=== PATIENT | male | born 1990 | race Caucasian/White ===

== ENCOUNTER 2017-12-12 00:31 | Day surgery (SDC) | payer BC ==
[~2017-12-12] VITALS: Ht 182.9 cm; Wt 77.6 kg
[2017-12-12] VITALS (8 sets, daily range): BP systolic 96–132; BP diastolic 51–75
[~2017-12-12 00:31] MED LIST: AZI250 PO; BACDS PO; LACT1CAP6 PO; LOR5 PO; PENI-22 PO; RANI-324 PO; SUCR1TAB85 PO
--- NOTE | 2017-12-12 07:33 | Post Operative Progress Note ---
Post Operative Progress Note Date: Dec 12, 2017 Time: 12:03 Surgeon: sylwia Anesthesia: dr gilbert Pre-Op Diagnosis: epigastric pain Post-Op Diagnosis: normal appearing exam Procedure(s): egd with biopsy of duodenum and for h pylori CHELA MARK MD Dec 12, 2017 07:33
--- NOTE | 2017-12-12 07:35 | Short(Outpt) Discharge Summary ---
Discharge Summary Reason for Hosp/Final Diag: (1) Epigastric pain Hospital Course & Plan: normal egd, biopsy for h pylori and bx of duodenum Departure Discharge to: Home Discharge Instructions Home Meds Reported Medications Lactobacillus Combination No.4 (PROBIOTIC) 1 Each Capsule, 1 EACH PO QDAY, CAPSULE 12/11/17 Sucralfate (CARAFATE) 1 Gm Tablet, 1 GM PO TID 12/11/17 Discontinued Reported Medications Ranitidine Hcl (ZANTAC) 150 Mg Tablet, 150 MG PO BID, TAB 12/11/17 Diet: Regular Activity: As Tolerated CHELA MRAK MD Dec 12, 2017 07:34
[2017-12-12] MEDS ORDERED: PROPOFOL EMUL(*) 10MG/ML 20 ML 0 ML ONE (07:41)
[2017-12-12] MEDS ORDERED: PROPOFOL EMUL(*) 10MG/ML 20 ML 40 ML ONE (07:41)
[2017-12-12] MEDS ORDERED: LIDOCAINE/SOD BICARB 8.4% SYR ID ONE (09:20)
[2017-12-12] MEDS ORDERED: NORMOSOL R SOLN(*) 1000 ML BAG 1,000 ML IV PRN (09:20)
[2017-12-12] MEDS ORDERED: MIDAZOLAM 2 MG/2 ML VIAL IVP ONE (09:20)
--- NOTE | 2017-12-12 22:53 | OPERATIVE REPORT 1 ---
EVENT DATE: December 12, 2017 SURGEON: Pepe Tian MD ANESTHESIOLOGIST: Surinder Segura MD ANESTHESIA: Sedation. PREOPERATIVE DIAGNOSIS Epigastric pain. POSTOPERATIVE DIAGNOSIS Normal-appearing esophagogastroduodenoscopy. PROCEDURE PERFORMED Esophagogastroduodenoscopy with biopsy for Helicobacter pylori and biopsy of the duodenum. DESCRIPTION OF PROCEDURE The patient was placed in the left lateral decubitus position and given intravenous sedation. The flexible gastroscope was inserted and advanced without difficulty. The esophagus distended nicely. The GE junction was right at 40 cm and distinct. No ulceration, narrowing, or inflammation. The stomach was empty. It passed through the pylorus and second and third portions of the duodenum, which were normal. We did biopsy the second portion of the duodenum and the duodenal bulb for histology. The pylorus was normal. The antrum was normal. The body of the stomach was normal. The scope was retroflexed. There were no fundic lesions. We biopsied for H. pylori, and the procedure was terminated. The patient tolerated the procedure well with no apparent complications. [facility]
== END 2017-12-12 12:30 | disposition home or self-care (01) ==
LOC: OR 00:31
PROVIDERS: ATTEND Surgery
DX: R10.13 Epigastric pain (principal)
CPT/HCPCS: 43239; 87077; J2704; 88305

== ENCOUNTER 2019-05-12 02:20 | Emergency (ER) | payer BC ==
[~2019-05-12 02:20] MED LIST changes: -RANI-324 PO; +RANI-54 PO
[2019-05-12 02:24] VITALS: BP 141/78
--- NOTE | 2019-05-12 02:32 | ER Report ---
History and Physical Time Seen By MD: 02:26 Hx. of Stated Complaint: patient states he was moving a metal shelves around 2200. patient has a lot of pain in left great toe, bruising under nail, and bleeding from cuticle area. HPI/ROS CHIEF COMPLAINT: Toe injury HISTORY OF PRESENT ILLNESS: This is a 28-year-old male. He is moving some metal shelving around 10:00 this evening. Crush the left great toe. Has some bruising underneath the toenail. Very tender and throbbing pain. Otherwise normal sensation. Hurts to move and hurts with any pressure. Allergies: Coded Allergies: No Known Drug Allergies (Verified , 05/12/19) Home Meds Active Scripts Hydrocodone Bit/Acetaminophen (HYDROCODON-ACETAMINOPHEN 5-325) 1 Each Tablet, 1 EACH PO Q4H PRN for PAIN, #6 TAB 0 Refills Prov:BIBI WEAVER MD 05/12/19 Discontinued Reported Medications Lactobacillus Combination No.4 (PROBIOTIC) 1 Each Capsule, 1 EACH PO QDAY, CAPSULE 12/11/17 Sucralfate (CARAFATE) 1 Gm Tablet, 1 GM PO TID 12/11/17 Reviewed Nurses Notes: Yes Hx Smoking: Yes Smoking Status: Former Smoker Hx Substance Use Disorder: No Hx Alcohol Use: No Constitutional Vital Sign - Last 24 Hours 05/12/19 02:24 Temp 98.9 Pulse 68 Resp 16 B/P (MAP) 141/78 Pulse Ox 96 O2 Delivery Room Air Physical Exam Gen.: Alert, in having some distress because of pain. Skin: A little bit of abrasion at the cuticle. Subungual hematoma left great toe. Musculoskeletal: Pain in the distal phalanx of the left great toe. Cardiovascular: Normal cap refill. Neuro: Sensory intact Medical Decision Making EKG/Imaging Imaging TOE LEFT FOOT GREAT TOE HISTORY: Smashed toe with metal shelving. Distal pain. Bruised toenail COMPARISON: None. TECHNIQUE: AP, oblique, and lateral views of the left great toe. FINDINGS: There is no fracture or dislocation. IMPRESSION: 1. No acute osseous abnormality of the left great toe. Report Dictated By: Brisa Urena at 05/12/2019 2:58 AM ED Course/Re-evaluation ED Course Using a Bovie cautery pen, burn to hold through the toenail to release pressure. Patient tolerated this well but with some pain. Lortab and ibuprofen used for pain. Decision to Disposition Date: May 12, 2019 Decision to Disposition Time: 03:28 Depart Departure Latest Vital Signs Vital Signs Date Time Temp Pulse Resp B/P (MAP) Pulse Ox O2 Delivery O2 Flow Rate FiO2 05/12/19 02:24 98.9 68 16 141/78 96 Room Air Impression: Primary Impression: Contusion of toe with damage to nail Additional Impression: Subungual hematoma of great toe of left foot Condition: Improved Disposition: HOME OR SELF-CARE Referrals: LINDSEY WAGNER (PCP) New Scripts Hydrocodone Bit/Acetaminophen (HYDROCODON-ACETAMINOPHEN 5-325) 1 Each Tablet 1 EACH PO Q4H PRN for PAIN, #6 TAB 0 Refills Prov: BIBI WEAVER MD 05/12/19 Patient Instructions: Subungual Hematoma (ED) Additional Instructions: Ibuprofen 200mg over the counter tablets, take 4 tablets three times a day with food. Lortab 5/325, one every 4 hours as needed for pain. Apply ice 20 minutes every 1-2 hours while awake to help with swelling and pain Problem Qualifiers Primary Impression: Contusion of toe with damage to nail Encounter type: initial encounter Toe: great toe Laterality: left Qualified Codes: S90.212A - Contusion of left great toe with damage to nail, initial encounter Additional Impression: Subungual hematoma of great toe of left foot Encounter type: initial encounter Qualified Codes: S90.212A - Contusion of left great toe with damage to nail, initial encounter BIBI WEAVER MD May 12, 2019 02:32
--- NOTE | 2019-05-12 03:23 | RADIOLOGY IMAGING REPORT ---
FACILITY: [facility] PATIENT NAME: Adolph Dickens : 1990 MR: [id number] V: [id number] EXAM DATE: ORDERING PHYSICIAN: BIBI WEAVER TECHNOLOGIST: Location: [facility] - [place] Patient: Adolph Dickens : 1990 Visit/Account:[id number] Date of Sevice: 05/12/2019 TOE LEFT FOOT GREAT TOE HISTORY: Smashed toe with metal shelving. Distal pain. Bruised toenail COMPARISON: None. TECHNIQUE: AP, oblique, and lateral views of the left great toe. FINDINGS: There is no fracture or dislocation. IMPRESSION: 1. No acute osseous abnormality of the left great toe. Report Dictated By: Brisa Urena at 05/12/2019 2:58 AM Report E-Signed By: Brisa Urena at 05/12/2019 3:00 AM WSN:[id number]
[2019-05-12] MEDS ORDERED: ACET/HYDROC 5/325MG TH ER ONLY 2 TAB/BOTTLE PO ONE (03:30)
[2019-05-12] MEDS ORDERED: LOR5/325 PO (03:32)
== END 2019-05-12 03:38 | disposition home or self-care (01) ==
LOC: ER 02:50
DX: S90.212A Contusion of left great toe with damage to nail, initial encounter (principal); W23.0XXA Caught, crushed, jammed, or pinched between moving objects, initial encounter
CPT/HCPCS: 99284